=== PATIENT | male | born 1995 | race American Indian/Alaskan Native ===

== ENCOUNTER 2020-10-19 19:16 | Emergency (ER) | payer SELFPAY ==
--- NOTE | 2020-10-19 19:34 | Emergency Department Report ---
ED General Adult HPI - General Chief complaint: Extremity Injury, Lower Stated complaint: LT KNEE INJURY Time Seen by Provider: 10/19/20 19:29 Source: patient, EMS Mode of arrival: Stretcher Limitations: Physical Limitation - History of Present Illness Initial comments: 25-year-old male patient presents to the emergency department via EMS with complaints of traumatic left knee injury occurring prior to arrival. Patient states he was weightlifting at the gym when a 45 pound bar from the [employer] machine fell onto his left knee. No head injury or loss of consciousness. No history of prior injuries to the left knee. No medications administered prior to arrival. Denies hip pain, lower leg pain, foot pain, ankle pain, paresthesias, numbness, weakness. Denies all other complaints at this time. - Related Data Previous Rx's Medication Instructions Recorded Last Taken Type HYDROcodone/APAP 5-325 [[place] 1 each PO Q4HR PRN #10 tablet 10/19/20 Unknown Rx 5/325] Allergies Allergy/AdvReac Type Severity Reaction Status Date / Time No Known Allergies Allergy Unverified 10/19/20 20:10 ED Review of Systems ROS: Stated complaint: LT KNEE INJURY Other details as noted in HPI Other: CARDIOVASCULAR: Negative for chest pain. PULMONARY: Negative for dyspnea. GASTROINTESTINAL: Negative for abdominal pain. MUSCULOSKELETAL: Positive for left knee pain. NEUROLOGICAL: Negative for headache. INTEGUMENTARY: Negative for ecchymosis. ED Past Medical Hx - Past Medical History Previous Medical History?: No - Surgical History Past Surgical History?: No - Social History Smoking Status: Current Every Day Smoker Substance Use Type: None - Medications Home Medications: Home Medications Medication Instructions Recorded Confirmed Last Taken Type HYDROcodone/APAP 5-325 [[place] 1 each PO Q4HR PRN #10 tablet 10/19/20 Unknown Rx 5/325] ED Physical Exam - General Limitations: Physical Limitation - Other Other exam information: General: Awake, appropriately interactive, no acute distress. Neck: Supple. Full range of motion intact. Cardiovascular: Normal peripheral perfusion. Pulmonary: No respiratory distress. Patient is speaking normally without use of accessory muscles. Skin: No apparent rashes or lesions. Neurological: No facial asymmetry. Speech is clear. Follows commands. Patient is alert and oriented. Musculoskeletal: Tenderness to palpation along the suprapatellar aspect of the left knee with significant soft tissue swelling and overlying ecchymosis. No tenderness along the patella or proximal fibula. Valgus and varus stress tests are negative. Compartments are soft. Pain is appropriately proportional to exam findings. Limited range of motion secondary to pain/swelling. Strong popliteal, posterior tibialis, and dorsalis pedis pulses. Brisk capillary refill. Distal neurovascular and motor/sensory function intact. Psych: Cooperative. Appropriate mood and affect. ED Course Vital Signs 10/19/20 19:25 Temperature 98.7 F Pulse Rate 101 H Respiratory 18 Rate Blood Pressure 180/90 O2 Sat by Pulse 97 Oximetry ED Medical Decision Making - Radiology Data : 1995 Acct:[id number] Age/Sex: 25 / M ADM Date: 10/19/20 Loc: ED Attending Dr: Ordering Physician: SHANNA SANTA Date of Service: 10/19/20 Procedure(s): XR knee 3V LT Accession Number(s): [id number] cc: SHANNA SANTA Fluoro Time In Minutes: Left knee-3 views INDICATION: crush injury at gym; suprapatellar pain/swellng. COMPARISON: None. IMPRESSION: No acute osseous abnormality. Rounded soft tissue swelling seen along the anterior aspect of the knee in the suprapatellar region, likely representing a moderate- sized hematoma given the history. No acute fracture. Normal alignment. No significant DJD. Signer Name: Osmani Hernandez MD Signed: 10/19/2020 8:12 PM Workstation Name: [id number] Transcribed By: JW Dictated By: Osmani Hernandez MD Electronically Authenticated By: Osmani Hernandez MD Signed Date/Time: 10/19/202011 DD/ 10 TD/TT: - Medical Decision Making Differential diagnosis including but not limited to: sprain, strain, fracture, contusion, dislocation, meniscal injury, collateral ligament injury, hematoma, compartment syndrome On reevaluation, patient is stable and symptoms have improved. Repeat neurovascular exam remains intact. X-rays show rounded soft tissue swelling along the anterior suprapatellar region, consistent with traumatic hematoma. Compartments are soft and pain is appropriately proportional to exam findings without neurovascular deficits; no clinical evidence to suggest compartment syndrome. Patient will be discharged home with Reji wrap x2, crutches, appropriate analgesics, and referral to orthopedics for close outpatient follow- up. Emphasized the importance of refraining from taking NSAIDs until otherwise instructed by energy efficiency specialist. Patient expressed understanding and is agreeable to plan of care. RICE precautions discussed. Strict return precautions provided. Repeat exam is unremarkable and benign. History, exam, diagnostic testing, and current condition do not suggest worrisome pathology to warrant further testing, continued ED treatment, admission, or surgical evaluation at this point. Given the low probability of a significant medical illness, it would be more likely to result in harm than benefit to perform further testing at this stage. Discussed findings, presumptive diagnosis, need for follow-up and specific signs/symptoms that should prompt immediate return to the emergency department. Instructions were explained in detail to the patient in addition to giving written discharge information. Patient expressed understanding and was given the opportunity to ask questions, all of which were satisfactorily answered prior to discharge home. Critical care attestation.: If time is entered above; I have spent that time in minutes in the direct care of this critically ill patient, excluding procedure time. ED Disposition Clinical Impression: Traumatic hematoma of left knee Qualifiers: Encounter type: initial encounter Qualified Code(s): S80.02XA - Contusion of left knee, initial encounter Disposition: - TO HOME OR SELFCARE Is pt being admited?: No Does the pt Need Aspirin: No Condition: Stable Instructions: Knee Effusion, [id number] Additional Instructions: Take [place] with food as directed for pain. Do not drive or operate machinery while taking this medication. Do not consume alcohol taking this medication. Avoid NSAID's (anti-inflammatory medications) until otherwise instructed by energy efficiency specialist. Apply ice to affected area to reduce swelling. Wear Reji wraps as directed. Use crutches as needed. Keep left knee elevated as often as possible to reduce swelling. Follow-up with Dr. Carvajal, orthopedics, this week. Call tomorrow to schedule an appointment. See referral information below. Return to the emergency department immediately for new or worsening symptoms. Prescriptions: HYDROcodone/APAP 5-325 [[place] 5/325] 1 each PO Q4HR PRN #10 tablet PRN Reason: Pain Referrals: KARLI CARVAJAL MD [Staff Physician] - 3-5 Days Forms: Work/School Release Form(ED) Time of Disposition: 20:40
[2020-10-19 19:48] VITALS: BP 180/90
[2020-10-19] MEDS ORDERED: HYDROcodone/ACETAMINOPHEN 5-325 MG TAB PO ONE (20:04)
[2020-10-19] MEDS ORDERED: ONDANSETRON 4 MG ODT TAB PO ONE (20:04)
--- NOTE | 2020-10-19 20:17 | XRay Report ---
Left knee-3 views INDICATION: crush injury at gym; suprapatellar pain/swellng. COMPARISON: None. IMPRESSION: No acute osseous abnormality. Rounded soft tissue swelling seen along the anterior aspe ct of the knee in the suprapatellar region, likely representing a moderate-sized hematoma given the h istory. No acute fracture. Normal alignment. No significant DJD. Signer Name: Osmani Hernandez MD Signed: 10/19/2020 8:12 PM Workstation Name: [id number]
== END 2020-10-19 20:50 | disposition home or self-care (01) ==
LOC: ED 19:16
DX: S80.02XA Contusion of left knee, initial encounter (principal); F17.200 Nicotine dependence, unspecified, uncomplicated; X50.1XXA Overexertion from prolonged static or awkward postures, initial encounter; Y93.72 Activity, wrestling; Y92.89 Other specified places as the place of occurrence of the external cause; Y99.8 Other external cause status
CPT/HCPCS: 99284; Q0162